=== PATIENT | male | born 2000 | race Caucasian/White ===

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

== ENCOUNTER 2023-01-18 19:38 | Emergency (ER) | payer MEDICAID, OTHER ==
[~2023-01-18 19:38] MED LIST changes: +ONDA4TAB5 PO
== END 2023-01-18 20:54 | disposition left against medical advice (07) ==
LOC: ER 19:38
DX: Z53.21 Procedure and treatment not carried out due to patient leaving prior to being seen by health care provider (principal)

== ENCOUNTER 2023-01-18 21:40 | Emergency (ER) | payer MEDICAID, OTHER ==
[~2023-01-18] VITALS: Ht 172.7 cm; Wt 56.8 kg
--- NOTE | 2023-01-18 22:35 | NUR ---
after being triaged, patient was placed back in the waiting room due to no beds avaialble in the ER.
--- NOTE | 2023-01-19 00:30 | NUR ---
Patient was called to be placed in room but was not present in the waiting room or outside of ER.
--- NOTE | 2023-01-19 01:00 | NUR ---
Patient was called to be placed in room but was not present in the waiting room or outside of ER.
== END 2023-01-19 01:00 | disposition left against medical advice (07) ==
LOC: ER 21:40
DX: J02.9 Acute pharyngitis, unspecified (principal); Z53.20 Procedure and treatment not carried out because of patient's decision for unspecified reasons
CPT/HCPCS: A4663

== ENCOUNTER 2023-11-11 15:49 | Emergency (ER) | payer SELFPAY ==
[~2023-11-11] VITALS: Ht 172.7 cm; Wt 56.7 kg
[2023-11-11 16:15] VITALS: O2SAT 98
[2023-11-11] MEDS ORDERED: CETI-90 PO (17:22)
[2023-11-11] MEDS ORDERED: ACET325T53 PO (17:22)
[2023-11-11] MEDS ORDERED: DOXY100T2 PO (17:22)
== END 2023-11-11 17:36 | disposition home or self-care (01) ==
LOC: ER 15:57
DX: J06.9 Acute upper respiratory infection, unspecified (principal); B97.89 Other viral agents as the cause of diseases classified elsewhere; F17.210 Nicotine dependence, cigarettes, uncomplicated; Z79.2 Long term (current) use of antibiotics; Z79.899 Other long term (current) drug therapy
CPT/HCPCS: A4606; A4663